=== PATIENT | female | born 1970 | race Caucasian/White ===

== ENCOUNTER → 2017-04-02 | Outpatient (CLI) | payer OTHER ==
[~2017-04-02] MED LIST: ALPR.5; AMPDEX30CR PO; ASCO500 PO; Aspir 8181 MG PO; BENADRYL25 MG PO; CARV25; CIPR100 PO; DIAZ5 PO; DULO60 PO; FISH1000 PO; Ferrous Sulfat325 MG; Flonase 0.05% N16 GM; HYDACE5 PO; HYDCHL25 PO; HYOS.125 SL; LOSA50 PO; LOSARTAN-HCTZ1 EAC1 PO; Lopressor 25 mg25 MG PO; MEDR10 PO; MELA3 PO; NIAC500 PO; ONDA4ODT MM; PHENA200 PO; PROM25 PO; Pepcid40 MG PO; Percocet 5-3251 EACH PO; TRAM50 PO; VITA25000 PO; Ventolin/Prove6.7 GM; ZOLP10; ZOLP10 PO; ZOLP12.5 PO; Zofran Odt4 MG PO
== END | disposition home or self-care (01) ==
LOC: PLD 09:04 → LAB SHORT 09:04
DX: N92.0 Excessive and frequent menstruation with regular cycle (principal); R87.810 Cervical high risk human papillomavirus (HPV) DNA test positive; N72 Inflammatory disease of cervix uteri; N84.0 Polyp of corpus uteri
CPT/HCPCS: 88305

== ENCOUNTER 2017-04-13 11:48 | Emergency (ER) | END 2017-04-13 14:37 | disposition home or self-care (01) ==

== ENCOUNTER 2017-05-09 14:06 | Day surgery (SDC) | payer OTHER ==
[~2017-05-09] VITALS: Ht 172.7 cm; Wt 80.6 kg
[~2017-05-09 14:06] MED LIST changes: -MEDR10 PO
[2017-05-09] MEDS ORDERED: MEDR10 PO (14:47)
== END 2017-05-09 16:55 | disposition home or self-care (01) ==
LOC: ORSCSDS 14:06
PROVIDERS: Obstetrics & Gynecology
PROC: 0UJD8ZZ Inspection of Uterus and Cervix, Via Natural or Artificial Opening Endoscopic (ICD-10-PCS; principal; 2017-05-09 15:30)
PROC: 0UH97HZ Insertion of Contraceptive Device into Uterus, Via Natural or Artificial Opening (ICD-10-PCS; principal; 2017-05-09 15:30)
DX: N92.0 Excessive and frequent menstruation with regular cycle (principal); I10 Essential (primary) hypertension; Z79.899 Other long term (current) drug therapy
CPT/HCPCS: J1100; J2250; J2370; J2405; J3010; J7120; J7298

== ENCOUNTER → 2018-06-17 | Outpatient (CLI) | payer BC ==
[~2018-06-17] MED LIST changes: +MEDR10 PO
[2018-06-19 15:06] LABS: HPV 16 Negative (Negative); HPV 18 Negative (Negative); HPV OTHER HR TYPES Positive (Negative)
== END | disposition home or self-care (01) ==
LOC: LAB 11:06 → LAB SHORT 11:06
PROVIDERS: Obstetrics & Gynecology
DX: Z01.419 Encounter for gynecological examination (general) (routine) without abnormal findings (principal)
CPT/HCPCS: 87624; 87625; G0123

== ENCOUNTER → 2018-07-29 | Outpatient (CLI) | payer BC ==
[~2018-07-29] MED LIST changes: +DOCU100 PO; +GABA300 PO; +IBUP800 PO
== END | disposition home or self-care (01) ==
LOC: PLD 12:38 → LAB SHORT 12:38
DX: R87.618 Other abnormal cytological findings on specimens from cervix uteri (principal); R87.610 Atypical squamous cells of undetermined significance on cytologic smear of cervix (ASC-US)
CPT/HCPCS: 88305; 88342

== ENCOUNTER 2018-09-08 05:39 | Day surgery (SDC) | payer BC ==
[~2018-09-08] VITALS: Ht 177 cm; Wt 90.1 kg
[~2018-09-08 05:39] MED LIST changes: -DOCU100 PO; -GABA300 PO; -IBUP800 PO
--- NOTE | 2018-09-08 06:49 | NUR ---
History, Chart, Medications and Allergies reviewed before start of procedure.Patient confirms NPO status and agrees with scheduled surgery. Lungs clear T/O to Auscultation. Patient reports completing Chlorhexadine shower X2 prior to admission to hospital.Surgical site prepped with 2% Chlorhexidine cloth wipe.
--- NOTE | 2018-09-08 09:02 | NUR ---
09/08/18 0902 Herb Garcia GHOTRA CATH REMOVED INTRAOPERATIVELY PER DR. QUAN FOR CYSTOSCOPY AND REPLACED WITH A NEW ONE.
[2018-09-09 04:32] LABS: BASOPHILS ABSOLUTE AUTO 0.02 K/mm3 (0.00-0.23); BASOPHILS PERCENT AUTO 0 % (0-2); EOSINOPHILS ABSOLUTE AUTO 0.01 K/mm3 (0.00-0.68); EOSINOPHILS PERCENT AUTO 0 % (0-6); Hematocrit 36.3 % (33.0-51.0); Hemoglobin 12.3 g/dL (11.5-16.0); IMMATURE GRAN ABSOLUTE AUTO 0.04 K/mm3 (0.00-0.10); IMMATURE GRAN PERCENT AUTO 0 % (0-1); LYMPHOCYTES ABSOLUTE AUTO 1.46 K/mm3 (0.84-5.20); LYMPHOCYTES PERCENT AUTO 9 % (21-46); MONOCYTES ABSOLUTE AUTO 1.26 K/mm3 (0.16-1.47); MONOCYTES PERCENT AUTO 8 % (4-13); Mean Corpuscular HGB 32.9 pg (26.0-34.0); Mean Corpuscular HGB Conc 33.9 g/dL (31.5-36.5); Mean Corpuscular Volume 97 fL (80-100); Mean Platelet Volume 9.8 fL (9.1-12.4); NEUTROPHILS ABSOLUTE AUTO 13.09 K/mm3 (1.96-9.15); NEUTROPHILS PERCENT AUTO 82 % (41-73); Platelet Count 285 K/mm3 (150-400); RDW Coefficient Variation 11.8 % (11.7-14.2); RDW Standard Deviation 42.1 fL (35.1-46.3); Red Blood Cell Count 3.74 M/mm3 (3.80-5.20); White Blood Cell Count 15.88 K/mm3 (4.00-11.30)
--- NOTE | 2018-09-09 07:31 | NUR ---
SHIFT SUMMARY PT A&O X4 T/O SHIFT. POD#1 HYSTER; DRESSINGS CDI; SCANT VAGINAL BLEEDING; BTX4; NAUSEA TX PER EMAR X1; RESOLVED THIS AM. VSS; NO ACUTE CHANGES. ABD PAIN MANAGED PER EMAR. PT UP IN GILES SEVERAL TIMES; GHOTRA DISCONTINUED AT 0615; PT EDUCATION ON CATHETER PROVIDED. PT IN ROOM. CALL LIGHT IN REACH; PT DEMONSTRATES USE.
[2018-09-09] MEDS ORDERED: DOCU100 PO (09:40)
[2018-09-09] MEDS ORDERED: GABA300 PO (09:41)
[2018-09-09] MEDS ORDERED: IBUP800 PO (09:42)
[2018-09-09] MEDS ORDERED: Percocet 5-3251 EACH PO (09:44)
--- NOTE | 2018-09-09 10:59 | NUR ---
DISCHARGE: DISCHARGE INSTRUCTIONS GIVEN, PT VERBALIZED UNDERSTANDING.SCRIPTS GIVEN TO PT, IV DC'D AND PT LEFT UNIT ON FOOT AT 1030.
== END 2018-09-09 10:30 | disposition home or self-care (01) ==
LOC: ORSCMMR 05:39 → ORD 07:30 → SURS 11:03 → ORSCMMR 09-09 10:30
PROVIDERS: Obstetrics & Gynecology
PROC: 0JQC0ZZ Repair Pelvic Region Subcutaneous Tissue and Fascia, Open Approach (ICD-10-PCS; principal; 2018-09-08 07:30)
PROC: 0TSD0ZZ Reposition Urethra, Open Approach (ICD-10-PCS; principal; 2018-09-08 07:30)
PROC: 0UT7FZZ Resection of Bilateral Fallopian Tubes, Via Natural or Artificial Opening With Percutaneous Endoscopic Assistance (ICD-10-PCS; principal; 2018-09-08 07:30)
PROC: 0UT9FZZ Resection of Uterus, Via Natural or Artificial Opening With Percutaneous Endoscopic Assistance (ICD-10-PCS; principal; 2018-09-08 07:30)
DX: N81.4 Uterovaginal prolapse, unspecified (principal); N39.3 Stress incontinence (female) (male); N81.6 Rectocele; D25.9 Leiomyoma of uterus, unspecified; M31.9 Necrotizing vasculopathy, unspecified; N92.0 Excessive and frequent menstruation with regular cycle; R03.0 Elevated blood-pressure reading, without diagnosis of hypertension
CPT/HCPCS: 36415; 85025; 88307; C1771; J0690; J1100; J1885; J2250; J2270; J2405; J2704; J2765; J3010; J7120

== ENCOUNTER → 2018-09-17 | Outpatient (CLI) | payer BC ==
[~2018-09-17] MED LIST changes: +DOCU100 PO; +GABA300 PO; +IBUP800 PO
[2018-09-18 06:19] LABS: Candida species (DNA Probe) Negative (NEGATIVE); G. vaginalis (DNA Probe) Positive (NEGATIVE); T. vaginalis (DNA Probe) Negative (NEGATIVE)
== END | disposition home or self-care (01) ==
LOC: LAB SHORT 11:46 → LAB 11:46
PROVIDERS: Obstetrics & Gynecology
DX: N89.8 Other specified noninflammatory disorders of vagina (principal)
CPT/HCPCS: 87480; 87510; 87660

== ENCOUNTER → 2019-04-30 | Outpatient (CLI) | payer BC ==
[2019-04-30 16:08] LABS: BASOPHILS ABSOLUTE AUTO 0.03 K/mm3 (0.00-0.23); BASOPHILS PERCENT AUTO 1 % (0-2); Hematocrit 45.3 % (33.0-51.0); Hemoglobin 15.7 g/dL (11.5-16.0); LYMPHOCYTES ABSOLUTE AUTO 0.59 K/mm3 (0.84-5.20); LYMPHOCYTES PERCENT AUTO 12 % (21-46); MONOCYTES ABSOLUTE AUTO 0.64 K/mm3 (0.16-1.47); MONOCYTES PERCENT AUTO 13 % (4-13); Mean Corpuscular HGB 32.6 pg (26.0-34.0); Mean Corpuscular HGB Conc 34.7 g/dL (31.5-36.5); Mean Corpuscular Volume 94 fL (80-100); Mean Platelet Volume 9.5 fL (9.1-12.4); Platelet Count 233 K/mm3 (150-400); RDW Coefficient Variation 11.9 % (11.7-14.2); RDW Standard Deviation 40.9 fL (35.1-46.3); Red Blood Cell Count 4.82 M/mm3 (3.80-5.20); White Blood Cell Count 4.97 K/mm3 (4.00-11.30)
[2019-04-30 16:12] LABS: Anion Gap 10 mmol/L (6-16); Blood Urea Nitrogen 7 mg/dL (8-24); Bun/Creatinine Ratio 10.3 (12.0-20.0); CO2, Blood 27 mmol/L (21-32); Calcium, Blood 8.5 mg/dL (8.5-10.1); Chloride, Blood 97 mmol/L (98-108); Creatinine, Blood 0.68 mg/dL (0.40-1.00); Glomerular Filtration Rate >60 (60-); Glucose, Blood 133 mg/dL (70-99); Potassium, Blood 3.5 mmol/L (3.5-5.5); Sodium, Blood 134 mmol/L (136-145)
[2019-04-30 16:15] LABS: EOSINOPHILS ABSOLUTE AUTO 0.11 K/mm3 (0.00-0.68); EOSINOPHILS PERCENT AUTO 2 % (0-6); IMMATURE GRAN ABSOLUTE AUTO 0.02 K/mm3 (0.00-0.10); IMMATURE GRAN PERCENT AUTO 0 % (0-1); NEUTROPHILS ABSOLUTE AUTO 3.58 K/mm3 (1.96-9.15); NEUTROPHILS PERCENT AUTO 72 % (41-73)
== END | disposition home or self-care (01) ==
LOC: LAB SHORT 16:03 → LAB EV 16:03
PROVIDERS: Physician Assistant Surgical
DX: J18.0 Bronchopneumonia, unspecified organism (principal)
CPT/HCPCS: 80048; 85025

== ENCOUNTER → 2020-01-11 | Outpatient (CLI) | payer BC ==
[~2020-01-11] MED LIST changes: +Hydrochlorothia25 MG PO
== END | disposition home or self-care (01) ==
LOC: PLD 11:51 → LAB SHORT 11:51
DX: N39.0 Urinary tract infection, site not specified (principal)
CPT/HCPCS: 87077; 87086; 87186

== ENCOUNTER → 2020-01-13 | Outpatient (CLI) | payer BC ==
[2020-01-13 11:42] LABS: BASOPHILS ABSOLUTE AUTO 0.04 K/mm3 (0.00-0.23); BASOPHILS PERCENT AUTO 1 % (0-2); EOSINOPHILS ABSOLUTE AUTO 0.07 K/mm3 (0.00-0.68); EOSINOPHILS PERCENT AUTO 1 % (0-6); Hematocrit 43.1 % (33.0-51.0); Hemoglobin 15.2 g/dL (11.5-16.0); IMMATURE GRAN ABSOLUTE AUTO 0.02 K/mm3 (0.00-0.10); IMMATURE GRAN PERCENT AUTO 0 % (0-1); LYMPHOCYTES ABSOLUTE AUTO 2.59 K/mm3 (0.84-5.20); LYMPHOCYTES PERCENT AUTO 52 % (21-46); MONOCYTES ABSOLUTE AUTO 0.47 K/mm3 (0.16-1.47); MONOCYTES PERCENT AUTO 9 % (4-13); Mean Corpuscular HGB 32.3 pg (26.0-34.0); Mean Corpuscular HGB Conc 35.3 g/dL (31.5-36.5); Mean Corpuscular Volume 92 fL (80-100); Mean Platelet Volume 9.1 fL (9.1-12.4); NEUTROPHILS ABSOLUTE AUTO 1.83 K/mm3 (1.96-9.15); NEUTROPHILS PERCENT AUTO 36 % (41-73); Platelet Count 283 K/mm3 (150-400); RDW Coefficient Variation 12.7 % (11.7-14.2); RDW Standard Deviation 42.3 fL (35.1-46.3); White Blood Cell Count 5.02 K/mm3 (4.00-11.30)
[2020-01-13 11:54] LABS: Alanine Aminotransfer (ALT/SGP 34 U/L (12-78); Albumin, Blood 4.1 g/dL (3.4-5.0); Alk Phos 109 U/L (40-126); Anion Gap 12 mmol/L (6-16); Aspartate Aminotrans (AST/SGOT 20 U/L (12-37); Bilirubin, Total 0.3 mg/dL (0.1-1.0); Blood Urea Nitrogen 11 mg/dL (8-24); CO2, Blood 25 mmol/L (21-32); Calcium, Blood 8.7 mg/dL (8.5-10.1); Chloride, Blood 102 mmol/L (98-108); Creatinine, Blood 0.61 mg/dL (0.40-1.00); Globulin, Blood 4.1 g/dL (2.2-4.0); Glomerular Filtration Rate >60 (60-); Glucose, Blood 123 mg/dL (70-99); Sodium, Blood 139 mmol/L (136-145); Total Protein, Blood 8.2 g/dL (6.4-8.2)
== END | disposition home or self-care (01) ==
LOC: LAB EV 11:31 → LAB SHORT 11:31
PROVIDERS: Chiropractor
DX: I10 Essential (primary) hypertension (principal); R53.83 Other fatigue
CPT/HCPCS: 80053; 84443; 85025

== ENCOUNTER → 2020-05-04 | Outpatient (CLI) | payer BC | END | disposition home or self-care (01) | LOC: LAB EV 15:30 → LAB SHORT 15:30 | DX: N39.0 Urinary tract infection, site not specified (principal) | CPT/HCPCS: 87086 ==

== ENCOUNTER → 2020-09-13 | Outpatient (CLI) | payer BC ==
[2020-09-14 14:09] LABS: CORONAVIRUS (COVID19) CSH-NRL Negative (Negative)
== END | disposition home or self-care (01) ==
LOC: LAB SHORT 10:37 → LAB 10:37
PROVIDERS: Physician Assistant Medical
DX: Z20.822 Contact with and (suspected) exposure to COVID-19 (principal)
CPT/HCPCS: U0003

== ENCOUNTER 2022-08-31 18:49 | Emergency (ER) | payer BC ==
[~2022-08-31] VITALS: Ht 172.7 cm; Wt 97.5 kg
[2022-08-31 19:49] LABS: Source, Urine Clean Catch
[2022-08-31 19:53] LABS: Appearance, Urine Clear (Clear); Bilirubin, Urine Neg (Neg); Blood, Urine Neg (Neg); Color, Urine Yellow (P-Yellow); Glucose Qualitative, Urine Neg (Neg); Ketones, Urine Neg (Neg); Leukocyte Esterase, Urine Neg (Neg); Nitrite, Urine Neg (Neg); Protein, Urine Neg (Neg); Urobilinogen, Urine NORM (Normal)
[2022-08-31 20:02] LABS: BASOPHILS ABSOLUTE AUTO 0.07 K/mm3 (0.00-0.23); BASOPHILS PERCENT AUTO 1 % (0-2); EOSINOPHILS ABSOLUTE AUTO 0.09 K/mm3 (0.00-0.68); EOSINOPHILS PERCENT AUTO 1 % (0-6); Hematocrit 40.5 % (33.0-51.0); Hemoglobin 14.4 g/dL (11.5-16.0); IMMATURE GRAN ABSOLUTE AUTO 0.02 K/mm3 (0.00-0.10); IMMATURE GRAN PERCENT AUTO 0 % (0-1); LYMPHOCYTES ABSOLUTE AUTO 2.89 K/mm3 (0.84-5.20); LYMPHOCYTES PERCENT AUTO 36 % (21-46); MONOCYTES ABSOLUTE AUTO 0.71 K/mm3 (0.16-1.47); MONOCYTES PERCENT AUTO 9 % (4-13); Mean Corpuscular HGB 32.1 pg (26.0-34.0); Mean Corpuscular HGB Conc 35.6 g/dL (31.5-36.5); Mean Corpuscular Volume 90 fL (80-100); Mean Platelet Volume 9.4 fL (9.1-12.4); NEUTROPHILS ABSOLUTE AUTO 4.19 K/mm3 (1.96-9.15); NEUTROPHILS PERCENT AUTO 53 % (41-73); Platelet Count 329 K/mm3 (150-400); RDW Coefficient Variation 12.4 % (11.7-14.2); RDW Standard Deviation 41.1 fL (35.1-46.3); Red Blood Cell Count 4.48 M/mm3 (3.80-5.20); White Blood Cell Count 7.97 K/mm3 (4.00-11.30)
[2022-08-31 20:20] LABS: Albumin, Blood 4.3 g/dL (3.4-5.0); Albumin/Globulin Ratio 1.2 (0.8-1.8); Bilirubin, Total 0.5 mg/dL (0.1-1.0); Bun/Creatinine Ratio 24.7 (12.0-20.0); Calcium, Blood 9.3 mg/dL (8.5-10.1); Creatinine, Blood 0.61 mg/dL (0.40-1.00); Globulin, Blood 3.5 g/dL (2.2-4.0); Potassium, Blood 2.6 mmol/L (3.5-5.5); Total Protein, Blood 7.8 g/dL (6.4-8.2)
[2022-08-31] MEDS ORDERED: FLUOXETINE HCL20 M2 PO (22:03)
[2022-08-31] MEDS ORDERED: LOSA50 PO (22:05)
[2022-08-31] MEDS ORDERED: METO50ER PO (22:07)
[2022-08-31] MEDS ORDERED: ATOR40TA PO (22:07)
[2022-09-01] MEDS ORDERED: KLOR-CON 1010 ME1 PO (00:13)
[2022-09-01 02:00] VITALS: BP 151/93
[2022-09-01] MEDS ORDERED: Percocet 5-3251 EACH PO (02:18)
== END 2022-09-01 03:00 | disposition home or self-care (01) ==
LOC: ER 18:49
PROVIDERS: Emergency Medicine
DX: R10.2 Pelvic and perineal pain (principal); M54.50 Low back pain, unspecified; E87.6 Hypokalemia; Z88.0 Allergy status to penicillin; Z88.2 Allergy status to sulfonamides; Z88.5 Allergy status to narcotic agent; Z88.1 Allergy status to other antibiotic agents; Z79.899 Other long term (current) drug therapy; I10 Essential (primary) hypertension
CPT/HCPCS: 74177; 80053; 81003; 83735; 85025; 93005; 93010; 96365; 96366; 96375; 99284-25; A9270; J1885; J2270; J3480; J7030; Q9967

== ENCOUNTER → 2022-09-03 | Outpatient (CLI) | payer BC ==
[~2022-09-03] MED LIST changes: +ATOR40TA PO; +FLUOXETINE HCL20 M2 PO; +KLOR-CON 1010 ME1 PO; +METO50ER PO
[2022-09-03 18:33] LABS: BASOPHILS ABSOLUTE AUTO 0.04 K/mm3 (0.00-0.23); BASOPHILS PERCENT AUTO 1 % (0-2); EOSINOPHILS ABSOLUTE AUTO 0.09 K/mm3 (0.00-0.68); EOSINOPHILS PERCENT AUTO 2 % (0-6); Hematocrit 38.1 % (33.0-51.0); Hemoglobin 13.1 g/dL (11.5-16.0); IMMATURE GRAN ABSOLUTE AUTO 0.01 K/mm3 (0.00-0.10); IMMATURE GRAN PERCENT AUTO 0 % (0-1); LYMPHOCYTES ABSOLUTE AUTO 2.31 K/mm3 (0.84-5.20); LYMPHOCYTES PERCENT AUTO 48 % (21-46); MONOCYTES ABSOLUTE AUTO 0.44 K/mm3 (0.16-1.47); MONOCYTES PERCENT AUTO 9 % (4-13); Mean Corpuscular HGB Conc 34.4 g/dL (31.5-36.5); Mean Corpuscular Volume 93 fL (80-100); Mean Platelet Volume 10.3 fL (9.1-12.4); NEUTROPHILS ABSOLUTE AUTO 1.96 K/mm3 (1.96-9.15); NEUTROPHILS PERCENT AUTO 40 % (41-73); Platelet Count 304 K/mm3 (150-400); RDW Coefficient Variation 12.4 % (11.7-14.2); RDW Standard Deviation 42.9 fL (35.1-46.3); White Blood Cell Count 4.85 K/mm3 (4.00-11.30)
[2022-09-03 21:49] LABS: Albumin/Globulin Ratio 1.2 (0.8-1.8); Bilirubin, Total 0.5 mg/dL (0.1-1.0); Bun/Creatinine Ratio 15.7 (12.0-20.0); Calcium, Blood 8.9 mg/dL (8.5-10.1); Creatinine, Blood 0.51 mg/dL (0.40-1.00); Globulin, Blood 3.2 g/dL (2.2-4.0); Potassium, Blood 3.8 mmol/L (3.5-5.5); Total Protein, Blood 7.2 g/dL (6.4-8.2)
== END | disposition home or self-care (01) ==
LOC: LAB SHORT 14:45 → LAB 14:45
PROVIDERS: Family Medicine
DX: K52.9 Noninfective gastroenteritis and colitis, unspecified (principal); E87.6 Hypokalemia
CPT/HCPCS: 80053; 83735; 85025

== ENCOUNTER → 2022-09-26 | Outpatient (CLI) | payer BC ==
[2022-09-26 08:58] LABS: BASOPHILS ABSOLUTE AUTO 0.06 K/mm3 (0.00-0.23); BASOPHILS PERCENT AUTO 1 % (0-2); EOSINOPHILS ABSOLUTE AUTO 0.19 K/mm3 (0.00-0.68); EOSINOPHILS PERCENT AUTO 3 % (0-6); Hemoglobin 15.5 g/dL (11.5-16.0); IMMATURE GRAN ABSOLUTE AUTO 0.04 K/mm3 (0.00-0.10); IMMATURE GRAN PERCENT AUTO 1 % (0-1); LYMPHOCYTES ABSOLUTE AUTO 2.87 K/mm3 (0.84-5.20); LYMPHOCYTES PERCENT AUTO 41 % (21-46); MONOCYTES ABSOLUTE AUTO 0.51 K/mm3 (0.16-1.47); MONOCYTES PERCENT AUTO 7 % (4-13); Mean Corpuscular HGB Conc 34.4 g/dL (31.5-36.5); Mean Corpuscular Volume 93 fL (80-100); Mean Platelet Volume 9.2 fL (9.1-12.4); NEUTROPHILS ABSOLUTE AUTO 3.34 K/mm3 (1.96-9.15); NEUTROPHILS PERCENT AUTO 48 % (41-73); Platelet Count 317 K/mm3 (150-400); RDW Coefficient Variation 12.7 % (11.7-14.2); RDW Standard Deviation 43.5 fL (35.1-46.3); Red Blood Cell Count 4.84 M/mm3 (3.80-5.20); White Blood Cell Count 7.01 K/mm3 (4.00-11.30)
[2022-09-26 09:20] LABS: Albumin, Blood 4.4 g/dL (3.4-5.0); Albumin/Globulin Ratio 1.1 (0.8-1.8); Bilirubin, Total 0.6 mg/dL (0.1-1.0); Bun/Creatinine Ratio 16.2 (12.0-20.0); Calcium, Blood 9.9 mg/dL (8.5-10.1); Creatinine, Blood 0.74 mg/dL (0.40-1.00); Globulin, Blood 3.9 g/dL (2.2-4.0); Magnesium, Blood 1.9 mg/dL (1.6-2.4); Potassium, Blood 4.2 mmol/L (3.5-5.5); Total Protein, Blood 8.3 g/dL (6.4-8.2)
== END | disposition home or self-care (01) ==
LOC: LAB SHORT 08:52 → LAB 08:52
PROVIDERS: Physician Assistant
DX: K52.9 Noninfective gastroenteritis and colitis, unspecified (principal); R25.2 Cramp and spasm
CPT/HCPCS: 80053; 83690; 83735; 85025

== ENCOUNTER 2022-10-03 11:24 | Emergency (ER) | payer BC ==
[~2022-10-03] VITALS: Ht 172.7 cm; Wt 94.8 kg
[2022-10-03 11:28] VITALS: BP 148/99
[2022-10-03] MEDS ORDERED: GABA100 PO (11:34)
== END 2022-10-03 11:30 | disposition home or self-care (01) ==
LOC: ER 11:24
DX: G89.29 Other chronic pain (principal); M54.50 Low back pain, unspecified; I10 Essential (primary) hypertension; Z88.0 Allergy status to penicillin; Z88.2 Allergy status to sulfonamides; Z88.5 Allergy status to narcotic agent; Z88.8 Allergy status to other drugs, medicaments and biological substances; Z79.899 Other long term (current) drug therapy
CPT/HCPCS: 99282

== ENCOUNTER 2022-10-14 05:48 | Emergency (ER) | payer BC ==
[~2022-10-14] VITALS: Ht 172.7 cm; Wt 95.7 kg
[~2022-10-14 05:48] MED LIST changes: +GABA100 PO
[2022-10-14] MEDS ORDERED: CYCL10 PO (07:26)
[2022-10-14] MEDS ORDERED: LIDO700A20 TOP (07:26)
[2022-10-14 08:15] VITALS: BP 135/82
== END 2022-10-14 08:31 | disposition home or self-care (01) ==
LOC: ER 05:48
DX: G89.29 Other chronic pain (principal); M51.16 Intervertebral disc disorders with radiculopathy, lumbar region; I10 Essential (primary) hypertension; Z88.0 Allergy status to penicillin; Z88.5 Allergy status to narcotic agent; Z88.2 Allergy status to sulfonamides; Z88.8 Allergy status to other drugs, medicaments and biological substances; Z79.899 Other long term (current) drug therapy
CPT/HCPCS: 96374; 96375; 99283-25; J1100; J1885; J2405; J3010

== ENCOUNTER 2022-10-20 17:18 | Inpatient (IN) | payer BC ==
[~2022-10-20] VITALS: Ht 172.7 cm; Wt 96.0 kg
[~2022-10-20 17:18] MED LIST changes: +CYCL10 PO; +LIDO700A20 TOP
[2022-10-20] MEDS ORDERED: BENADRYL25 MG PO (17:50)
[2022-10-20 18:31] LABS: BASOPHILS ABSOLUTE AUTO 0.05 K/mm3 (0.00-0.23); BASOPHILS PERCENT AUTO 1 % (0-2); EOSINOPHILS PERCENT AUTO 1 % (0-6); Hematocrit 36.8 % (33.0-51.0); Hemoglobin 12.8 g/dL (11.5-16.0); IMMATURE GRAN ABSOLUTE AUTO 0.04 K/mm3 (0.00-0.10); IMMATURE GRAN PERCENT AUTO 0 % (0-1); LYMPHOCYTES ABSOLUTE AUTO 2.84 K/mm3 (0.84-5.20); LYMPHOCYTES PERCENT AUTO 26 % (21-46); MONOCYTES ABSOLUTE AUTO 0.85 K/mm3 (0.16-1.47); MONOCYTES PERCENT AUTO 8 % (4-13); Mean Corpuscular HGB 32.5 pg (26.0-34.0); Mean Corpuscular HGB Conc 34.8 g/dL (31.5-36.5); Mean Corpuscular Volume 93 fL (80-100); NEUTROPHILS ABSOLUTE AUTO 7.11 K/mm3 (1.96-9.15); NEUTROPHILS PERCENT AUTO 65 % (41-73); Platelet Count 269 K/mm3 (150-400); RDW Coefficient Variation 12.1 % (11.7-14.2); RDW Standard Deviation 42.2 fL (35.1-46.3); Red Blood Cell Count 3.94 M/mm3 (3.80-5.20); White Blood Cell Count 10.99 K/mm3 (4.00-11.30)
[2022-10-20 18:35] LABS: Calcium, Ionized (POC) 0.81 mmol/L (1.10-1.46); Chloride (POC) 117 mmol/L (98-108); Creatinine (POC) 0.6 mg/dL (0.6-1.0); Glucose (ISTAT POC) 85 mg/dL (70-99); Hemoglobin (POC) 7.5 g/dL (12.0-16.0); Potassium (POC) 2.3 mmol/L (3.5-5.5); Sodium (POC) 148 mmol/L (135-148); Total CO2 (POC) 15 mmol/L (21-32)
[2022-10-20 18:50] LABS: Albumin, Blood 2.9 g/dL (3.4-5.0); Albumin/Globulin Ratio 1.2 (0.8-1.8); Bilirubin, Total 0.5 mg/dL (0.1-1.0); Bun/Creatinine Ratio 15.4 (12.0-20.0); Calcium, Blood 7.4 mg/dL (8.5-10.1); Creatinine, Blood 1.23 mg/dL (0.40-1.00); Globulin, Blood 2.4 g/dL (2.2-4.0); Magnesium, Blood 1.6 mg/dL (1.6-2.4); Potassium, Blood 3.6 mmol/L (3.5-5.5); Total Protein, Blood 5.3 g/dL (6.4-8.2)
[2022-10-20 18:53] LABS: Acetaminophen, Random 2.2 ug/mL (10.0-30.0); Salicylate <1.7 mg/dL (2.8-20.0)
[2022-10-20 23:00] VITALS: BP 100/78
--- NOTE | 2022-10-20 23:11 | NUR ---
PT ARRIVES TO ROOM ICU 6 FROM ED. COMES TO ROOM AT 2300. ABLE TO AMBULATE FROM GURNEY TO BED. DOES COMPLAIN OF BACK PAIN AT THIS TIME. UP TO BEDSIDE COMMODE TO VOID. WILL PROVIDE K-PAD FOR BACK DISCOMFORT.
[2022-10-20 23:30] VITALS: BP 104/64
[2022-10-20 23:45] VITALS: BP 104/59
[2022-10-21] VITALS (25 sets, daily range): BP systolic 93–157; BP diastolic 47–112
--- NOTE | 2022-10-21 03:31 | NUR ---
PT HAS BEEN MEDICATED ONCE WITH 25 MCG'S FENTANYL FOR COMPLAINTS OF BACK PAIN. CURRENTLY IS SLEEPING IN BED. NO COMPLAINTS AT THIS TIME. PT REMAINS WITH MAP > 65. NO VERTIGO OR SYNCOPAL EPISODES TO NOTE. ROOM AIR MAINTAINS > 90 PERCENT SATURATIONS. WILL CONTINUE TO MONITOR PT.
[2022-10-21 05:28] LABS: Bun/Creatinine Ratio 25.6 (12.0-20.0); Calcium, Blood 7.6 mg/dL (8.5-10.1); Creatinine, Blood 0.66 mg/dL (0.40-1.00)
[2022-10-21 05:30] LABS: U Amphetamine Screen Not Detected; U Barbituate Screen Not Detected; U Benzodiazapine Screen Not Detected; U Buprenorphine Screen Not Detected; U Cannabinoids Screen DETECTED; U Cocaine Screen Not Detected; U Methadone Screen Not Detected; U Methamphetamine Screen Not Detected; U Opiates Screen Not Detected; U Oxycodone Screen Not Detected; U Phencyclidine Screen Not Detected; U Propoxyphene Screen Not Detected
--- NOTE | 2022-10-21 06:41 | NUR ---
PT HAS BEEN ABLE TO GET UP TO BEDSIDE COMMODE TO VOID. NO COMPLAINTS OF DYSURIA. PT MEDICATED AGAIN WITH 25 MCG'S FENTANYL FOR RETURN OF BACK PAIN, AND WITH 650 MG TYLENOL. PT CURRENTLY SLEEPING IN BED. WILL CONTINUE TO MONITOR PT, AND WILL REPORT OFF TO ONCOMING RN. PT HAS MAINTAINED MAP > 65. HAS NOT NEEDED ANY LEVOPHED.
--- NOTE | 2022-10-21 08:59 | NUR ---
SHIFT ASSESSMENT ASSUMED CARE OF PT @ 0700. PT A&OX4, RECALLS ALL EVENTS LEADING UP TO THIS STAY. PLEASANT AND COOPERATIVE WITH CARE. BP NORMOTENSIVE WITHOUT LEVOPHED. AMBULATES TO BSC WITHOUT ASSISTANCE, DENIES DIZZINESS. C/O CONSTANT BACK PAIN, HAVE NOT TREATED WITH PHARMACEUTICALS THIS SHIFT. HEATING PAD APPLIED TO PROBLEM AREA. NO OTHER ACUTE CONCERNS FROM PT. WILL MONITOR CLOSELY.
--- NOTE | 2022-10-21 13:47 | NUR ---
UPDATE PT CONTINUES TO C/O SEVERE BACK PAIN, LITTLE TO NO RELIEF WITH PREVIOUS MEDICATIONS. PT STILL ABLE TO SLOWLY AMBULATE TO BEDSIDE COMMODE. HOSPITALIST NOTIFIED, TRYING DIFFERENT MEDICATIONS AND PT/OT EVAL.
--- NOTE | 2022-10-21 17:23 | NUR ---
SHIFT SUMMARY PT REMAINS A&OX4, PLEASANT AND COOPERATIVE WITH CARE. CONTINUES TO C/O SEVERE BACK PAIN WITH MINIMAL RELIEF FROM HEAT/ ICE/ REPOSITIONING & MEDICATIONS. ORAL PAIN MED DOSAGE INCREASED. ADMITTING PT TO MEDICAL FLOOR ROOM 304 FOR THE NIGHT, REPORT GIVEN.
--- NOTE | 2022-10-21 18:16 | NUR ---
SHIFT SUMMARY; PATIENT IS ICU TRANSFER LATE IN DAY. SHE IS AO X 4. SHE IS HAVING DIFFICULTY WITH PAIN MANAGEMENT AND DOES NOT HAVE AN APPOINTMENT WITH NEUROLOGY UNTIL THE . SPOUSE AT BEDSIDE. HE ASSISTS IN HER CARE. REX IS MOST COMFORTABLE WHEN LAYING DOWN ON HER SIDE WITH PILLOW BETWEEN HER KNEES. PER REPORT REX HAD BEEN SUFFERING WITH INCREASED PAIN OVER THE PAST WEEK AND DECIDED TO TRY 25MG [id number] AND 900MG GABAPENTIN WHICH CAUSED HER TO HAVE A SYNCOPAL EPISODE AND SHE BECAME VERY WEAK. UPON ARRIVAL TO ER SHE HAD LOW B/P. THEN ADMITTED TO ICU FOR POSSIBLE LEVOPHED ADMIN.
--- NOTE | 2022-10-22 04:18 | NUR ---
SHIFT SUMMARY PATIENT HAD NO ACUTE CHANGES. AXOX 4 AND SBA TO BR. LAYS FLAT ON BACK AND SIDE FOR PAIN MANAGEMENT. OXYCODONE 10 MG GIVEN FOR BACK PAIN X TWO. ABLE TO SLEEP WHEN PAIN MANAGED. PIV REMAINS INTACT. SPOUSE PRESENT FIRST PART OF SHIFT AND HELPS WITH CARE. DENIES CHEST PAIN, SOB, AND N//V. CALL LIGHT IN REACH. BED IN LOWEST POSITION. WILL CONTINUE TO MONITOR UNTIL DAY SHIFT NURSE ASSUMES CARE.
[2022-10-22 05:02] LABS: BASOPHILS ABSOLUTE AUTO 0.05 K/mm3 (0.00-0.23); BASOPHILS PERCENT AUTO 1 % (0-2); EOSINOPHILS ABSOLUTE AUTO 0.38 K/mm3 (0.00-0.68); EOSINOPHILS PERCENT AUTO 6 % (0-6); Hematocrit 36.1 % (33.0-51.0); Hemoglobin 12.6 g/dL (11.5-16.0); IMMATURE GRAN ABSOLUTE AUTO 0.01 K/mm3 (0.00-0.10); IMMATURE GRAN PERCENT AUTO 0 % (0-1); LYMPHOCYTES ABSOLUTE AUTO 3.59 K/mm3 (0.84-5.20); LYMPHOCYTES PERCENT AUTO 54 % (21-46); MONOCYTES ABSOLUTE AUTO 0.49 K/mm3 (0.16-1.47); MONOCYTES PERCENT AUTO 7 % (4-13); Mean Corpuscular HGB 32.1 pg (26.0-34.0); Mean Corpuscular HGB Conc 34.9 g/dL (31.5-36.5); Mean Corpuscular Volume 92 fL (80-100); Mean Platelet Volume 9.7 fL (9.1-12.4); NEUTROPHILS ABSOLUTE AUTO 2.14 K/mm3 (1.96-9.15); NEUTROPHILS PERCENT AUTO 32 % (41-73); Platelet Count 256 K/mm3 (150-400); RDW Coefficient Variation 11.7 % (11.7-14.2); RDW Standard Deviation 39.8 fL (35.1-46.3); Red Blood Cell Count 3.92 M/mm3 (3.80-5.20); White Blood Cell Count 6.66 K/mm3 (4.00-11.30)
[2022-10-22 05:34] LABS: Albumin, Blood 3.4 g/dL (3.4-5.0); Albumin/Globulin Ratio 1.3 (0.8-1.8); Bilirubin, Total 0.6 mg/dL (0.1-1.0); Calcium, Blood 8.7 mg/dL (8.5-10.1); Creatinine, Blood 0.55 mg/dL (0.40-1.00); Globulin, Blood 2.7 g/dL (2.2-4.0); Potassium, Blood 3.8 mmol/L (3.5-5.5); Total Protein, Blood 6.1 g/dL (6.4-8.2)
[2022-10-22 06:05] VITALS: BP 151/98
[2022-10-22 07:29] VITALS: BP 157/96
[2022-10-22 15:04] VITALS: BP 155/93
--- NOTE | 2022-10-22 18:20 | NUR ---
THE PATIENT IS A&O X4, FOLLOWS COMMANDS AND IS PLEASENT TO VISIT WITH. THE PATIENT'S SPOUSE HAS BEEN IN THE ROOM WITH THE PATIENT MOST OF THE DAY, THE PATIENT HAD A SHOWER TODAY, BUT HAS SPENT MOST OF THE SHIFT IN HER BED. THE PATIENT IS EATING WELL. THE ATIENT IS RESTING AT THIS TIME, I WILL CONTINUE TO MONITOR HER.
[2022-10-22 19:33] VITALS: BP 150/88
[2022-10-23 03:39] VITALS: BP 126/89
--- NOTE | 2022-10-23 03:43 | NUR ---
SHIFT SUMMARY ADMITTED FOR SEPTIC SHOCK. FULL CODE. PAIN MEDICATION GIVEN THIS SHIFT FOR CHRONIC BACK PAIN. TELEMETRY: NSR @ 73 BPM. ON REGULAR DIET, A&O X4, ON RA. CHRONIC BACK PAIN AND PAIN MANAGEMENT ARE THE CONCERNS THIS SHIFT
[2022-10-23 07:26] VITALS: BP 152/91
--- NOTE | 2022-10-23 11:30 | NUR ---
Patient up to Ambulate independently. Gait steady. Discharge instructions reviewed with patient. Patient verbalizes understanding. Copy given to patient to take home. Patient States Post-Procedure ride home has been arranged. Discharged via wheelchair to private car for ride home. THE PATIENT WAS DISCHARGED HOME WITH HER SPOUSE, AFTER HER IV'S WERE ROMOVED AND DISCHARGE INSTRUCTIONS WERE GIVEN.
== END 2022-10-23 11:27 | disposition home or self-care (01) | DRG 917 ==
LOC: ER 17:18 → ICUE 17:19 → MEDS 10-21 16:44 → ICUE 10-21 16:44 → MEDS 10-21 17:34 → ENPENDDIS 10-23 10:10 → MEDS 10-23 11:27
PROVIDERS: Internal Medicine; Nurse Practitioner Acute Care; Student in an Organized Health Care Education/Training Program; ADMIT Internal Medicine
PROC: 3E033XZ Introduction of Vasopressor into Peripheral Vein, Percutaneous Approach (ICD-10-PCS; principal; 2022-10-20)
DX: T48.1X1A Poisoning by skeletal muscle relaxants [neuromuscular blocking agents], accidental (unintentional), initial encounter (principal); R57.8 Other shock; N17.9 Acute kidney failure, unspecified; T42.6X1A Poisoning by other antiepileptic and sedative-hypnotic drugs, accidental (unintentional), initial encounter; I95.2 Hypotension due to drugs; I10 Essential (primary) hypertension; G89.29 Other chronic pain; E86.0 Dehydration; F32.A Depression, unspecified; M54.16 Radiculopathy, lumbar region; F41.9 Anxiety disorder, unspecified; E78.5 Hyperlipidemia, unspecified; Z79.899 Other long term (current) drug therapy; Z79.891 Long term (current) use of opiate analgesic; Z88.0 Allergy status to penicillin; Z88.2 Allergy status to sulfonamides; Z88.8 Allergy status to other drugs, medicaments and biological substances; Z98.1 Arthrodesis status; Z88.5 Allergy status to narcotic agent
CPT/HCPCS: 36415; 80047; 80048; 80053; 83605; 83735; 85014; 85025; 93005; 93010; 96365; 96366; 96368; 96372; 96375; 96376; 97140; 97161; 97165; 97530; 97535; 99291-25; A9270; G0378; G0480; J1644; J3010; J3475; J3480; J7030; J7050; J7060

== ENCOUNTER → 2024-12-08 | Outpatient (CLI) | payer BC | LOC: LAB SHORT 15:15 → LAB 15:15 | DX: N39.0 Urinary tract infection, site not specified (principal) | CPT/HCPCS: 87077; 87086; 87186 ==

== ENCOUNTER → 2024-12-11 | Outpatient (CLI) | payer BC ==
[2024-12-11 13:23] LABS: BASOPHILS ABSOLUTE AUTO 0.09 K/mm3 (0.00-0.23); BASOPHILS PERCENT AUTO 1 % (0-2); EOSINOPHILS ABSOLUTE AUTO 0.54 K/mm3 (0.00-0.68); EOSINOPHILS PERCENT AUTO 7 % (0-6); Hematocrit 43.3 % (33.0-51.0); Hemoglobin 14.9 g/dL (11.5-16.0); IMMATURE GRAN ABSOLUTE AUTO 0.02 K/mm3 (0.00-0.10); IMMATURE GRAN PERCENT AUTO 0 % (0-1); LYMPHOCYTES ABSOLUTE AUTO 3.37 K/mm3 (0.84-5.20); LYMPHOCYTES PERCENT AUTO 40 % (21-46); MONOCYTES ABSOLUTE AUTO 0.58 K/mm3 (0.16-1.47); MONOCYTES PERCENT AUTO 7 % (4-13); Mean Corpuscular HGB Conc 34.4 g/dL (31.5-36.5); Mean Corpuscular Volume 90 fL (80-100); NEUTROPHILS ABSOLUTE AUTO 3.74 K/mm3 (1.96-9.15); NEUTROPHILS PERCENT AUTO 45 % (41-73); NRBC ABSOLUTE 0.00 K/mm3 (0.00-0.02); NRBC Auto 0.0 /100 WBC (0.0-0.2); Platelet Count 276 K/mm3 (150-400); RDW Coefficient Variation 12.3 % (11.7-14.2); RDW Standard Deviation 40.2 fL (35.1-46.3)
[2024-12-11 13:47] LABS: Alanine Aminotransfer (ALT/SGP 29.0 U/L (12-78); Albumin, Blood 4.0 g/dL (3.4-5.0); Albumin/Globulin Ratio 1.2 (0.8-1.8); Anion Gap 15.0 mmol/L (3-11); Aspartate Aminotrans (AST/SGOT 19.0 U/L (12-37); Bilirubin, Total 0.4 mg/dL (0.1-1.0); Blood Urea Nitrogen 12.0 mg/dL (8-24); CO2, Blood 24.0 mmol/L (21-32); Calcium, Blood 9.0 mg/dL (8.5-10.1); Chloride, Blood 102.0 mmol/L (98-108); Creatinine, Blood 0.51 mg/dL (0.40-1.00); Globulin, Blood 3.4 g/dL (2.2-4.0); Glucose, Blood 114.0 mg/dL (70-99); Potassium, Blood 4.1 mmol/L (3.5-5.5); Sodium, Blood 137.0 mmol/L (136-145); Total Protein, Blood 7.4 g/dL (6.4-8.2)
== END ==
LOC: LAB 13:18 → LAB SHORT 13:18
PROVIDERS: Physician Assistant
DX: R10.A2 Flank pain, left side (principal)
CPT/HCPCS: 80053; 85025